=== PATIENT | male | born 1985 | race Two or more races ===

== ENCOUNTER 2020-07-06 16:18 | Emergency (ER) | payer SELFPAY ==
[~2020-07-06] VITALS: Ht 180.3 cm; Wt 106.6 kg
[2020-07-06 19:58] VITALS: BP 120/83
[2020-07-06] MEDS ORDERED: IBUPROFEN 800 MG TAB PO ONE (21:00)
[2020-07-06] MEDS ORDERED: ACETAMINOPHEN 500 MG TAB PO ONE (21:00)
[2020-07-06] MEDS ORDERED: ACETAMINOPHEN/CODEINE#3 (300/30mg) TAB PO ONE (21:15)
== END 2020-07-06 21:50 | disposition home or self-care (01) ==
LOC: ER 16:18
DX: S42.021A Displaced fracture of shaft of right clavicle, initial encounter for closed fracture (principal); V86.59XA Driver of other special all-terrain or other off-road motor vehicle injured in nontraffic accident, initial encounter; Y93.89 Activity, other specified; Y92.488 Other paved roadways as the place of occurrence of the external cause; Y99.8 Other external cause status
CPT/HCPCS: 71046; 73030